=== PATIENT | female | born 1975 | race African-American/Black ===

== ENCOUNTER 2018-08-20 22:43 | Emergency (ER) | payer OTHER ==
[~2018-08-20] VITALS: Ht 157.5 cm; Wt 85.0 kg
[~2018-08-20 22:43] MED LIST: CIPR-263 PO; DOCU-138 PO; METR500T PO; OMEP20TA2 PO; TRAM50TA3 PO
[2018-08-21] MEDS ORDERED: HYDROCODONE/ACETAMINOPHEN 5/325MG TABLET PO ONE (00:30)
[2018-08-21] MEDS ORDERED: LIDOCAINE HCL/PF 1% 2ML VIAL INFIL ONE (00:30)
[2018-08-21] MEDS ORDERED: LIDOCAINE HCL/PF 1% 10 MG/ML 5ML VIAL IJ NR (01:00)
[2018-08-21] MEDS ORDERED: TETANUS, DIPHTHERIA, PERTUSSIS VAC/PF 0.5ML (>7YR OLD) IM ONE (03:00)
[2018-08-21 03:30] VITALS: BP 111/66
== END 2018-08-21 03:47 | disposition home or self-care (01) ==
LOC: ER 22:43
DX: S61.210A Laceration without foreign body of right index finger without damage to nail, initial encounter (principal); Z79.899 Other long term (current) drug therapy; Z98.890 Other specified postprocedural states; W01.0XXA Fall on same level from slipping, tripping and stumbling without subsequent striking against object, initial encounter; Y93.89 Activity, other specified; Y92.89 Other specified places as the place of occurrence of the external cause; Y99.8 Other external cause status
CPT/HCPCS: 12001; 73140; 90471; 90715; 99283; J3490

== ENCOUNTER 2019-04-28 06:00 | Emergency (ER) | payer OTHER ==
[~2019-04-28] VITALS: Ht 154.9 cm; Wt 85.0 kg
[2019-04-28] MEDS ORDERED: KETOROLAC 60MG/2ML VIAL IM ONE (07:45)
[2019-04-28] MEDS ORDERED: DIAZEPAM 5 MG TABLET PO ONE (07:45)
[2019-04-28 11:00] VITALS: BP 121/73
== END 2019-04-28 11:44 | disposition home or self-care (01) ==
LOC: ER 06:00
DX: M54.12 Radiculopathy, cervical region (principal); F17.210 Nicotine dependence, cigarettes, uncomplicated; Z98.890 Other specified postprocedural states
CPT/HCPCS: 93005; 96372; 99283; J1885

== ENCOUNTER 2021-02-07 08:51 | Emergency (ER) | payer OTHER ==
[~2021-02-07] VITALS: Ht 157.5 cm; Wt 82.0 kg
[2021-02-07] MEDS ORDERED: IBUPROFEN 800MG TABLET PO ONE (09:15)
[2021-02-07] MEDS ORDERED: IBUP-2030 MT (10:30)
[2021-02-07] MEDS ORDERED: METH-773 MT (10:30)
[2021-02-07 10:52] VITALS: BP 161/85
== END 2021-02-07 10:52 | disposition home or self-care (01) ==
LOC: ER 08:51
DX: M54.12 Radiculopathy, cervical region (principal); M75.102 Unspecified rotator cuff tear or rupture of left shoulder, not specified as traumatic; Z98.890 Other specified postprocedural states
CPT/HCPCS: 72040; 73030; 99284

== ENCOUNTER 2024-01-19 04:45 | Emergency (ER) | payer OTHER ==
[~2024-01-19] VITALS: Ht 165.1 cm; Wt 82.0 kg
[~2024-01-19 04:45] MED LIST changes: +IBUP-2030 MT; +METH-773 MT; -OMEP20TA2 PO; +OMEP20TA23 PO
[2024-01-19 05:07] VITALS: O2SAT 99
[2024-01-19] MEDS: IBUPROFEN 600MG TABLET PO ONE (05:44)
[2024-01-19 07:51] VITALS: BP 135/87; PULSE 71; RESP 16; TEMP 98.2
== END 2024-01-19 07:51 | disposition home or self-care (01) ==
LOC: ER 04:45
DX: S99.811A Other specified injuries of right ankle, initial encounter (principal); Z98.890 Other specified postprocedural states; X58.XXXA Exposure to other specified factors, initial encounter; Y93.89 Activity, other specified; Y92.89 Other specified places as the place of occurrence of the external cause; Y99.8 Other external cause status
CPT/HCPCS: 73610; 73630; 99284

== ENCOUNTER 2024-08-08 17:49 | Emergency (ER) | payer SELFPAY ==
[~2024-08-08] VITALS: Ht 157.5 cm; Wt 81.6 kg
[2024-08-08 17:50] VITALS: O2SAT 99
[2024-08-08 17:54] VITALS: TEMP 98.1; O2SAT 99
[2024-08-08] MEDS ORDERED: AMOX1TAB16 MT (20:03)
[2024-08-08] MEDS ORDERED: NAPR-681 PO (20:03)
[2024-08-08] MEDS: METHYLPREDNISOLONE SOD SUCC 125MG/2ML (ACT-O-VIAL) IM STA (20:39)
[2024-08-08 20:40] VITALS: BP 150/74; PULSE 89; RESP 16
[2024-08-08] MEDS: PENICILLIN G BENZATHINE 1,200,000 UNITS/2ML SYR IM ONE (20:40)
[2024-08-08] MEDS: KETOROLAC 30MG/ML VIAL IM STA (20:40)
== END 2024-08-08 20:41 | disposition home or self-care (01) ==
LOC: ER 17:49
DX: J02.9 Acute pharyngitis, unspecified (principal); H92.09 Otalgia, unspecified ear; Z20.822 Contact with and (suspected) exposure to COVID-19; Z98.890 Other specified postprocedural states
CPT/HCPCS: 99284; 87426; 87430; 87070; 96372; J0561; J1885; J2919